=== PATIENT | male | born 1970 | race Caucasian/White ===

== ENCOUNTER 2016-12-08 13:17 | Emergency (ER) | payer MEDICARE ==
[~2016-12-08] VITALS: Ht 177.8 cm; Wt 108.9 kg
[2016-12-08] MEDS ORDERED: CLINDAMYCIN 900 MG in APPROPRIATE DILUENT 1 EA IV ONE (14:00)
[2016-12-08] MEDS ORDERED: ONDANSETRON 4MG/2ML VIAL (J2405) IV ONE (14:00)
[2016-12-08] MEDS ORDERED: KETOROLAC 30 MG/ML VIAL (J1885) IV ONE (14:00)
[2016-12-08] MEDS ORDERED: ADACEL/BOOSTRIX VACCINE (DIPHTH/PERTUSS/ACELL/TETANUS)0.5ML SYR (90715) IM ONE (14:15)
[2016-12-08 15:26] LABS: ANION GAP 7 MEQ/L (8-16); BLOOD UREA NITROGEN 13 MG/DL (7-18); CALCIUM LEVEL 8.8 MG/DL (8.5-10.1); CARBON DIOXIDE LEVEL 30 MEQ/L (21-32); CHLORIDE LEVEL 95 MEQ/L (98-107); CREATININE FOR GFR 1.23 MG/DL (0.70-1.30); GLOMERULAR FILTRATION RATE > 60.0 (>60); GLUCOSE, FASTING 125 MG/DL (70-105); POTASSIUM SERUM 3.6 MEQ/L (3.5-5.1); SODIUM LEVEL 132 MEQ/L (136-145)
[2016-12-08 15:38] LABS: BASO # 0.1 K/mm3 (0.0-0.2); BASO % 0.7 % (0.0-1.0); EOS # 0.1 K/mm3 (0.0-0.50); EOS % 0.8 % (0.0-3.0); LARGE UNSTAINED CELL # 0.2 K/mm3 (0.0-0.4); LYMPH # 1.3 K/mm3 (1.5-4.5); LYMPH % 6.5 % (24.0-44.0); MEAN CORPUSCULAR HEMOGLOBIN 30.7 pg (27.0-33.0); MEAN CORPUSCULAR HGB CONC 35.9 g/dl (32.0-36.5); MEAN CORPUSCULAR VOLUME 85.6 fl (80.0-96.0); MONO # 1.1 K/mm3 (0.0-0.8); MONO % 6.1 % (0.0-5.0); NEUTROPHILS # 14.9 K/mm3 (1.8-7.7); NEUTROPHILS % 84.9 % (36.0-66.0); PLATELET COUNT, AUTOMATED 214 k/mm3 (150-450); RED CELL DISTRIBUTION WIDTH 12.7 % (11.5-14.5); WHITE BLOOD COUNT 17.6 K/mm3 (4.0-10.0)
[2016-12-08] MEDS ORDERED: NS 1,000 ML IV ONE (15:45)
[2016-12-08] MEDS ORDERED: CLEO300C2 PO (16:09)
[2016-12-08 16:26] VITALS: BP 120/79
[2016-12-08 16:30] LABS: ERYTHROCYTE SEDIMENTATION RATE 39 mm/hr (0-15)
== END 2016-12-08 16:39 | disposition home or self-care (01) ==
LOC: M ED 14:10
DX: L03.113 Cellulitis of right upper limb (principal)

== ENCOUNTER 2016-12-10 16:03 | Inpatient (IN) | payer MEDICARE ==
[~2016-12-10] VITALS: Ht 177.8 cm; Wt 108.0 kg
[~2016-12-10 16:03] MED LIST: CLEO300C2 PO
[2016-12-10] MEDS ORDERED: IBUP600T26 PO (16:21)
[2016-12-10] MEDS ORDERED: NS 1,000 ML IV ONE (17:00)
[2016-12-10] MEDS ORDERED: ONDANSETRON 4MG/2ML VIAL (J2405) IV ONE (17:00)
[2016-12-10] MEDS ORDERED: MORPHINE 4 MG/ML 1ML SYRINGE IV ONE (17:00)
[2016-12-10 17:21] LABS: BASO % 0.2 % (0.0-1.0); EOS # 0.2 K/mm3 (0.0-0.50); EOS % 1.5 % (0.0-3.0); LARGE UNSTAINED CELL # 0.3 K/mm3 (0.0-0.4); LARGE UNSTAINED CELL % 2.3 % (0.0-4.0); LYMPH # 1.7 K/mm3 (1.5-4.5); LYMPH % 13.6 % (24.0-44.0); MEAN CORPUSCULAR HEMOGLOBIN 29.9 pg (27.0-33.0); MEAN CORPUSCULAR HGB CONC 34.3 g/dl (32.0-36.5); MEAN CORPUSCULAR VOLUME 87.1 fl (80.0-96.0); MONO # 0.8 K/mm3 (0.0-0.8); MONO % 6.2 % (0.0-5.0); NEUTROPHILS # 9.3 K/mm3 (1.8-7.7); NEUTROPHILS % 76.2 % (36.0-66.0); PLATELET COUNT, AUTOMATED 212 k/mm3 (150-450); RED CELL DISTRIBUTION WIDTH 12.3 % (11.5-14.5); WHITE BLOOD COUNT 12.1 K/mm3 (4.0-10.0)
[2016-12-10 17:37] LABS: ANION GAP 8 MEQ/L (8-16); BLOOD UREA NITROGEN 7 MG/DL (7-18); CALCIUM LEVEL 8.7 MG/DL (8.5-10.1); CARBON DIOXIDE LEVEL 29 MEQ/L (21-32); CHLORIDE LEVEL 99 MEQ/L (98-107); CREATININE FOR GFR 1.08 MG/DL (0.70-1.30); GLOMERULAR FILTRATION RATE > 60.0 (>60); GLUCOSE, FASTING 106 MG/DL (70-105); POTASSIUM SERUM 3.4 MEQ/L (3.5-5.1); SODIUM LEVEL 136 MEQ/L (136-145)
--- NOTE | 2016-12-10 17:40 | REPUSA ---
Clinical history: right upper extremity wounds. Findings: Real-time ultrasound imaging of the right axillary fossa was performed. Draining wound is n oted at this site. Mild redness is seen within the soft tissues. There is a hypoechoic mass measuring 5.8 x 1.4 x 2.7 cm, with possibly complex fluid noted. Normal heterogeneous fibroglandular tissue is noted. No evidence of calcifications are appreciated. No other gross abnormalities. Impression: Complex fluid collection at the site of concernwith diffuse surrounding edema. The findin gs could represent a complex abscess or cyst. Follow-up is suggested as clinically indicated.
[2016-12-10] MEDS ORDERED: PIPERACILLIN/TAZOBACTAM SOD 3.375 GM in D5W MINI-BAG PLUS 50 ML IV ONE (17:45)
[2016-12-10] MEDS: NS 1,000 ML IV SCH (18:44)
[2016-12-10] MEDS ORDERED: ONDANSETRON 4 MG TAB (S0181) PO PRN (18:45)
[2016-12-10] MEDS ORDERED: POTASSIUM CHLORIDE 10 MEQ SR TABLET PO ONE (18:45)
[2016-12-10] MEDS ORDERED: ACETAMINOPHEN TAB 650MG DOSE (2X325MG) PO PRN (18:45)
[2016-12-10] MEDS ORDERED: ONDANSETRON 4MG/2ML VIAL (J2405) IV PRN (18:45)
--- NOTE | 2016-12-10 19:55 | HPEPDOC ---
Medical History and Physical Date of Admission Dec 10, 2016 at 18:44 History and Physical HISTORY AND PHYSICAL Date of admission: 12/10/2016 PCP: Dr. Bone Chief complaint: Pain and erythema of right arm HPI: 46-year-old male with no past medical history presented to the emergency department secondary to erythema and pain in his right arm. He states that on Sunday, he was working under the car, when he scraped his arm on some of the rusting metal underneath. An area that he describes as a blood blister developed , and he said he poked it open with a safety pin that he had soaked in hydrogen peroxide. After that, his arm began to swell quite a bit and got very red. He ended up wrapping it in an Kyle bandage and went to bed. On morning, when he woke up, his arm had swelled up quite a bit with the Kyle bandage on, and when he took it off, he states that a bunch of yellow, foul-smelling pus flooded out of his arm. It did not seem to get any better, so on Sunday, he came to the emergency department. In the emergency department, he was given a tetanus shot, and was sent home on oral clindamycin. Since then, he states that some of the swelling and erythema, particularly that which was distal to his elbow, has improved and gone down. However, he states that he continues to have a lot of pain, swelling, and even increasing erythema of the area proximal to his elbow. He states that he continues to have foul-smelling yellow drainage from the area that is open in his antecubital fossa. He states that at home, he had been doing warm compresses and Epsom salts, and had been getting good drainage. He came back to the ER today for a wound check, and the PA was concerned that he had some areas of erythema that were increasing beyond the previously drawn borders. Past medical history: None Past surgical history: Back surgery Family history: COPD, diabetes mellitus Social history: The patient smokes several cigars daily. He denies any alcohol or drug use Allergies: No known drug allergies Review of systems: General: Positive for subjective fever and chills Eyes: Negative for vision changes and ocular drainage ENT: Negative for sore throat and nose bleed Cardiovascular: Negative for chest pain and palpitations Respiratory: Negative for cough and shortness of breath GI: Positive for nausea, negative for vomiting, diarrhea, constipation Musculoskeletal: Negative for neck and back pain Neuro: Positive for headache, dizziness. Negative for numbness and tingling Psych: Negative for depression and suicidal ideation Endocrine: Negative for polyuria : Negative for dysuria Heme: Negative for bleeding Home meds: See below Physical exam: Vital signs: Vital Sign - Last 24 Hours 12/10/16 12/10/16 12/10/16 12/10/16 16:04 17:18 17:35 17:36 Temp 98.3 Pulse 77 Resp 18 20 18 B/P (MAP) 137/83 (101) Pulse Ox 93 96 96 O2 Delivery Room Air Gen.: awake, alert, no acute distress Eyes: Extraocular movements intact, normal sclera ENT: Moist mucous membranes Cardiovascular: RRR, no murmurs rubs or gallops Lungs: clear to auscultation bilaterally, no rales, rhonchi, or wheeze Abdomen: Soft, NT/ND, normal BS Musculoskeletal: normal range of motion Extremities: RUE has intact radial pulse; erythema is confined by distal markings but it extends beyond the proximal markings; there is an area of erythema and induration just proximal to his antecubital fossa; he has good drainage from two areas in his antecubital fossa, especially when the indurated area is massage; the drainage is foul smelling and yellow Neuro: alert and oriented 3, normal speech, no focal deficits Psych: Normal mood with congruent affect Labs and radiology: See below White count has improved from 17.6 on Sunday to 12.1 today His CRP has improved from 15 on Sunday to 7.14 today BMP is unremarkable other than potassium of 3.4 Blood and wound cultures are pending Right upper extremity ultrasound shows a complex fluid collection consistent with abscess Assessment and plan: 46-year-old healthy male who is admitted with cellulitis and abscess of the right upper extremity after failing outpatient therapy. 1. Cellulitis and abscess of the right upper extremity: The patient is afebrile , and his white count and CRP are both trending down. However, his erythema has extended beyond the previous markings. The patient has been on oral clindamycin at home. We will do IV vancomycin and Zosyn, as well as continue some warm compresses and try to continue to express fluid from the abscess. At this time, the patient has good drainage and I do not believe it needs to be surgically incised. Blood and wound cultures are pending. However, if he does not continue to improve or his drainage stops, we may have to consider a surgical consultation. He already received a tetanus shot on Sunday. 2. Hypokalemia: Replace; we will check a magnesium DVT prophylaxis: Lovenox Dispo: admit as an inpatient to the service of Dr. Crowell CODE STATUS: Full code Vital Signs Vital Signs Date Time Temp Pulse Resp B/P (MAP) Pulse Ox O2 Delivery O2 Flow Rate FiO2 12/10/16 17:36 12/10/16 17:35 18 96 12/10/16 16:04 98.3 77 Room Air Laboratory Data Labs 24H Laboratory Tests 2 12/10/16 17:03: White Blood Count 12.1H, Red Blood Count 4.48, Hemoglobin 13.4L, Hematocrit 39.0L, Mean Corpuscular Volume 87.1, Mean Corpuscular Hemoglobin 29.9, Mean Corpuscular Hemoglobin Concent 34.3, Red Cell Distribution Width 12.3, Platelet Count 212, Neutrophils (%) (Auto) 76.2H, Lymphocytes (%) (Auto) 13.6L, Monocytes (%) (Auto) 6.2H, Eosinophils (%) (Auto) 1.5, Basophils (%) (Auto) 0.2 , Neutrophils # (Auto) 9.3H, Lymphocytes # (Auto) 1.7, Monocytes # (Auto) 0.8, Eosinophils # (Auto) 0.2, Basophils # (Auto) 0.0, Large Unclassified Cells % 2.3 , Large Unclassified Cells # 0.3, Anion Gap 8, Glomerular Filtration Rate > 60.0 , Blood Urea Nitrogen 7, Creatinine 1.08, Sodium Level 136, Potassium Level 3.4L , Chloride Level 99, Carbon Dioxide Level 29, Calcium Level 8.7, C-Reactive Protein, Quantitative 7.14H CBC/BMP Laboratory Tests 12/10/16 17:03 Red Blood Count 4.48, Mean Corpuscular Volume 87.1, Mean Corpuscular Hemoglobin 29.9, Mean Corpuscular Hemoglobin Concent 34.3, Red Cell Distribution Width 12.3 , Neutrophils (%) (Auto) 76.2 H, Lymphocytes (%) (Auto) 13.6 L, Monocytes (%) ( Auto) 6.2 H, Eosinophils (%) (Auto) 1.5, Basophils (%) (Auto) 0.2, Neutrophils # (Auto) 9.3 H, Lymphocytes # (Auto) 1.7, Monocytes # (Auto) 0.8, Eosinophils # (Auto) 0.2, Basophils # (Auto) 0.0, Calcium Level 8.7 Microbiology Microbiology 12/10/16 Blood Culture, Received Pending 12/10/16 Blood Culture, Received Pending 12/10/16 Gram Stain, Received Pending 12/10/16 Wound Culture, Received Pending Home Medications Scheduled Clindamycin Hcl (Cleocin) 300 Mg Cap, 300 MG PO Q6H Scheduled PRN Ibuprofen (Ibuprofen) 600 Mg Tab, 600 MG PO Q6H PRN for PAIN Allergies Coded Allergies: No Known Allergies (Unverified , 12/08/16) HERLINDA SNYDER Dec 10, 2016 19:55
[2016-12-10] MEDS ORDERED: VANCOMYCIN HCL 1,000 MG, VIAL MATE ADAPTER 1 EACH in D5W 250 ML IV ONE (20:00)
[2016-12-10] MEDS ORDERED: NICOTINE 14 MG/24 HR TRANSDERMAL TD ONE (20:00)
[2016-12-10] MEDS: PERCOCET 5MG/325MG TAB PO PRN (20:05)
[2016-12-10 21:36] VITALS: BP 110/61
[2016-12-11] MEDS: PIPERACILLIN/TAZOBACTAM SOD 3.375 GM in D5W MINI-BAG PLUS 50 ML IV SCH ×3 (00:34→13:46)
[2016-12-11] MEDS: PERCOCET 5MG/325MG TAB PO PRN ×6 (00:41→23:00)
[2016-12-11] MEDS: NS 1,000 ML IV SCH ×2 (00:43→12:39)
--- NOTE | 2016-12-11 03:13 | PHACANCOPD ---
PHARMACY VANCOMYCIN DOSING Pt Demographics Demographics Patient Age:46 , Weight:108.000 , Gender: male Adjusted Body Weight Date: 12/11/16, Adjusted Body Weight: [90.97] Kg Vancomycin Vancomycin indication: CELLULITIS(10-20) Vancomycin Target Ranges: 10-20 mcg/ml Vancomycin Load Y/N: No Load Dose Date Time Vancomycin Load Dose: Date: Time: Vancomycin Dose Date: 12/11/16. Current Vancomycin Dose: [1 gm iv q8h] Intermittent Dosing?: No Labs Labs Laboratory Tests 12/10/16 17:03 Red Blood Count 4.48, Mean Corpuscular Volume 87.1, Mean Corpuscular Hemoglobin 29.9, Mean Corpuscular Hemoglobin Concent 34.3, Red Cell Distribution Width 12.3 , Neutrophils (%) (Auto) 76.2 H, Lymphocytes (%) (Auto) 13.6 L, Monocytes (%) ( Auto) 6.2 H, Eosinophils (%) (Auto) 1.5, Basophils (%) (Auto) 0.2, Neutrophils # (Auto) 9.3 H, Lymphocytes # (Auto) 1.7, Monocytes # (Auto) 0.8, Eosinophils # (Auto) 0.2, Basophils # (Auto) 0.0, Calcium Level 8.7 Micro Microbiology 12/10/16 Blood Culture, Received Pending 12/10/16 Blood Culture, Received Pending 12/10/16 Gram Stain, Received Pending 12/10/16 Wound Culture, Received Pending Creatinine Clearance Date:12/11/16. Creatinine Clearance: [108.8]CALCULATED. Pending Labs TROUGH DUE Assessment and Plan Maintaining Current Dose?: Yes Reason for dose change: No Dose Change Pharmacist Note Pharmacist Note Date: 12/11/16. Pharmacist note:46 YOM 5'10" 117.93 KG ADMITTED W/CELLULITIS: TREATMENT REGIMEN INCLUDES PIP/TAZO 3.375 GM IV Q6H PLUS VANCOMYCIN PER PHARMACY CONSULT.;SCR=1.08: CRCL= 108.8 CALCULATED:wILL BEGIN vANCOMYCIN 1 GM IV Q8H BEGINNING :TROUGH TO BE DRAWN 12/11@1900: WILL CONTINUE TO FOLLOW LEVELS AND LABS ALEXAND[facility] Dec 11, 2016 03:13
[2016-12-11 04:00] VITALS: BP 118/69
[2016-12-11] MEDS: VANCOMYCIN HCL 1,000 MG, VIAL MATE ADAPTER 1 EACH in D5W 250 ML IV SCH ×3 (04:00→20:43)
[2016-12-11 06:58] LABS: BASO % 0.6 % (0.0-1.0); EOS # 0.2 K/mm3 (0.0-0.50); EOS % 2.2 % (0.0-3.0); LARGE UNSTAINED CELL # 0.2 K/mm3 (0.0-0.4); LARGE UNSTAINED CELL % 3.3 % (0.0-4.0); LYMPH # 2.2 K/mm3 (1.5-4.5); MEAN CORPUSCULAR HEMOGLOBIN 29.8 pg (27.0-33.0); MEAN CORPUSCULAR HGB CONC 34.3 g/dl (32.0-36.5); MEAN CORPUSCULAR VOLUME 86.8 fl (80.0-96.0); MONO # 0.5 K/mm3 (0.0-0.8); MONO % 7.4 % (0.0-5.0); NEUTROPHILS # 4.1 K/mm3 (1.8-7.7); NEUTROPHILS % 58.5 % (36.0-66.0); PLATELET COUNT, AUTOMATED 179 k/mm3 (150-450); RED CELL DISTRIBUTION WIDTH 12.4 % (11.5-14.5); WHITE BLOOD COUNT 6.9 K/mm3 (4.0-10.0)
[2016-12-11 07:15] LABS: ANION GAP 6 MEQ/L (8-16); BLOOD UREA NITROGEN 6 MG/DL (7-18); CALCIUM LEVEL 8.1 MG/DL (8.5-10.1); CARBON DIOXIDE LEVEL 28 MEQ/L (21-32); CHLORIDE LEVEL 110 MEQ/L (98-107); CREATININE FOR GFR 0.92 MG/DL (0.70-1.30); GLOMERULAR FILTRATION RATE > 60.0 (>60); GLUCOSE, FASTING 126 MG/DL (70-105); MAGNESIUM LEVEL 2.2 MG/DL (1.8-2.4); POTASSIUM SERUM 4.2 MEQ/L (3.5-5.1); SODIUM LEVEL 144 MEQ/L (136-145)
[2016-12-11 08:00] VITALS: BP 106/65
[2016-12-11] MEDS: ENOXAPARIN 40 MG/0.4 ML SYRINGE (J1650) SC SCH (09:09)
--- NOTE | 2016-12-11 15:08 | IPNPDOC ---
Subjective Date Seen The patient was seen on 12/11/16. Subjective Chief Complaint/HPI The patient is a 46-year-old male admitted with a reason for visit of Cellulitis Of Right Upper Extremity. General: Denies: Chills, Night Sweats Constitutional: Denies: Chills, Fever Eyes: Denies: Pain, Vision change ENT: Denies: Head Aches, Ear Pain Skin: Reports: Other (RUE Swelling, tenderness) Pulmonary: Denies: Dyspnea, Cough Cardiovascular: Denies: Chest Pain, Palpitations Gastrointestinal: Denies: Nausea, Vomiting Genitourinary: Denies: Dysuria, Frequency Hematologic: Denies: Bruising, Bleeding Excessively Objective Physical Examination General Exam: Positive: Alert, Cooperative, No Acute Distress ENT Exam: Positive: Atraumatic, Mucous membr. moist/pink Neck Exam: Negative: JVD Chest Exam: Positive: Clear to auscultation, Normal air movement Heart Exam: Positive: Rate Normal, Normal S1, Normal S2 Abdomen Exam: Positive: Soft, Negative: Tenderness Extremity Exam: Positive: Other (RUE notable for area of erythema/induration spreading from antecubital fossa area outwardly. The area of erythema has significantly improved and decreased compared to previous markings. Two small open drainage sites noted in the RUE antecubital fossae, draining clear/ yellowish upon deep palpation. No erythema or tenderness to palpation) Assessment /Plan Plan/VTE VTE Prophylaxis Ordered?: Yes Plan Cellulitis and abscess of the right upper extremity U/S of the RUE notable for complex fluid collection consistent with possible underlying abscess vs cyst--however the patient has drained a considerable amount of fluid upon expression of the drainage site and onto gauze dressing. His area of erythema on RUE has also improved significantly compared to previous markings Patient remains afebrile here. White blood cell count and CRP both continue to trend down. Continue Vancomycin for now Blood and wound cultures pending. We will continue to monitor the patient, if the patient spikes a fever, WBC or CRP levels worsen, we can consider a repeat U/S and surgical consultation for an I&D of the site DVT prophylaxis: Lovenox Dispo-Anticipate transition to PO Abx and D/C in the next 24-48 hrs pending blood/wound cultures, and continued clinical improvement. VS, I&O, 24H, Fishbone Vital Signs/I&O Vital Signs Date Time Temp Pulse Resp B/P (MAP) Pulse Ox O2 Delivery O2 Flow Rate FiO2 12/11/16 14:08 18 12/11/16 08:00 97.6 84 106/65 (79) 100 Room Air I&O- Last 24 Hours up to 6 AM 12/11/16 06:00 Intake Total 720 ml Balance 720 ml Laboratory Data 24H LABS Laboratory Tests 2 12/10/16 17:03: White Blood Count 12.1H, Red Blood Count 4.48, Hemoglobin 13.4L, Hematocrit 39.0L, Mean Corpuscular Volume 87.1, Mean Corpuscular Hemoglobin 29.9, Mean Corpuscular Hemoglobin Concent 34.3, Red Cell Distribution Width 12.3, Platelet Count 212, Neutrophils (%) (Auto) 76.2H, Lymphocytes (%) (Auto) 13.6L, Monocytes (%) (Auto) 6.2H, Eosinophils (%) (Auto) 1.5, Basophils (%) (Auto) 0.2 , Neutrophils # (Auto) 9.3H, Lymphocytes # (Auto) 1.7, Monocytes # (Auto) 0.8, Eosinophils # (Auto) 0.2, Basophils # (Auto) 0.0, Large Unclassified Cells % 2.3 , Large Unclassified Cells # 0.3, Anion Gap 8, Glomerular Filtration Rate > 60.0 , Blood Urea Nitrogen 7, Creatinine 1.08, Sodium Level 136, Potassium Level 3.4L , Chloride Level 99, Carbon Dioxide Level 29, Calcium Level 8.7, C-Reactive Protein, Quantitative 7.14H 12/11/16 06:30: White Blood Count 6.9, Red Blood Count 3.99L, Hemoglobin 11.9L, Hematocrit 34.7L , Mean Corpuscular Volume 86.8, Mean Corpuscular Hemoglobin 29.8, Mean Corpuscular Hemoglobin Concent 34.3, Red Cell Distribution Width 12.4, Platelet Count 179, Neutrophils (%) (Auto) 58.5, Lymphocytes (%) (Auto) 28.0, Monocytes ( %) (Auto) 7.4H, Eosinophils (%) (Auto) 2.2, Basophils (%) (Auto) 0.6, Neutrophils # (Auto) 4.1, Lymphocytes # (Auto) 2.2, Monocytes # (Auto) 0.5, Eosinophils # (Auto) 0.2, Basophils # (Auto) 0.0, Large Unclassified Cells % 3.3 , Large Unclassified Cells # 0.2, Anion Gap 6L, Glomerular Filtration Rate > 60.0, Blood Urea Nitrogen 6L, Creatinine 0.92, Sodium Level 144#, Potassium Level 4.2#, Chloride Level 110H, Carbon Dioxide Level 28, Calcium Level 8.1L, C- Reactive Protein, Quantitative 4.59H, Magnesium Level 2.2 CBC/BMP Laboratory Tests 12/10/16 17:03 Red Blood Count 4.48, Mean Corpuscular Volume 87.1, Mean Corpuscular Hemoglobin 29.9, Mean Corpuscular Hemoglobin Concent 34.3, Red Cell Distribution Width 12.3 , Neutrophils (%) (Auto) 76.2 H, Lymphocytes (%) (Auto) 13.6 L, Monocytes (%) ( Auto) 6.2 H, Eosinophils (%) (Auto) 1.5, Basophils (%) (Auto) 0.2, Neutrophils # (Auto) 9.3 H, Lymphocytes # (Auto) 1.7, Monocytes # (Auto) 0.8, Eosinophils # (Auto) 0.2, Basophils # (Auto) 0.0, Calcium Level 8.7 12/11/16 06:30 Red Blood Count 3.99 L, Mean Corpuscular Volume 86.8, Mean Corpuscular Hemoglobin 29.8, Mean Corpuscular Hemoglobin Concent 34.3, Red Cell Distribution Width 12.4, Neutrophils (%) (Auto) 58.5, Lymphocytes (%) (Auto) 28.0, Monocytes (%) (Auto) 7.4 H, Eosinophils (%) (Auto) 2.2, Basophils (%) ( Auto) 0.6, Neutrophils # (Auto) 4.1, Lymphocytes # (Auto) 2.2, Monocytes # (Auto ) 0.5, Eosinophils # (Auto) 0.2, Basophils # (Auto) 0.0, Calcium Level 8.1 L Microbiology Microbiology 12/10/16 Blood Culture, Received Pending 12/10/16 Blood Culture, Received Pending 12/10/16 Gram Stain - Final, Resulted 12/10/16 Wound Culture, Resulted Pending DENISE PERALTA MD Dec 11, 2016 15:08
[2016-12-11 16:00] VITALS: BP 131/83
--- NOTE | 2016-12-11 19:59 | PHACANCOPD ---
PHARMACY VANCOMYCIN DOSING Pt Demographics Demographics Patient Age:46 , Weight:108.000 , Gender: male Adjusted Body Weight Date: 12/11/16, Adjusted Body Weight: [90.97] Kg Events Past 24 Hours Events Past 24 Hours: YES: Pending Procedures, NO: Dialysis, Diuretic Therapy, Change in CrCl, Fever, Elevation in WBC, Pending Diagnostics, Other Vancomycin Vancomycin indication: CELLULITIS(10-20) Vancomycin Target Ranges: 10-20 mcg/ml Vancomycin Load Y/N: No Load Dose Date Time Vancomycin Load Dose: Date: Time: Vancomycin Dose Date: 12/11/16. Current Vancomycin Dose: [1 gm iv q8h] Intermittent Dosing?: No Labs Labs Item Value Date Time White Blood Count 12.1 K/mm3 H 12/10/16 1703 White Blood Count 6.9 K/mm3 12/11/16 0630 Vancomycin Level Trough 10.5 UG/ML 12/11/16 1912 Creatinine 1.08 MG/DL 12/10/16 1703 Creatinine 0.92 MG/DL 12/11/16 0630 Micro Microbiology 12/10/16 Blood Culture - Preliminary, Resulted No growth after 24 hours . All specim... 12/10/16 Blood Culture - Preliminary, Resulted No growth after 24 hours . All specim... 12/10/16 Gram Stain - Final, Resulted 12/10/16 Wound Culture, Resulted Pending Creatinine Clearance Date:12/11/16. Creatinine Clearance: [108.8]CALCULATED. Pending Labs TROUGH DUE 12/11@1900 Assessment and Plan Maintaining Current Dose?: Yes Reason for dose change: Other Pharmacist Note Pharmacist Note Date: 12/11/16. Pharmacist note: vanco trough was drawn on time ~1 hour before the 4th dose and came back at 10.5. I have rescheduled his dosing to allow a 4 hour load as SCr has slightly improved today. Anticipated switch to oral abx in the next 24-48 hours. Cultures have thus far been unremarkable. Zosyn has been discontinued. We will continue to monitor. Date: 12/11/16. Pharmacist note:46 YOM 5'10" 117.93 KG ADMITTED W/CELLULITIS: TREATMENT REGIMEN INCLUDES PIP/TAZO 3.375 GM IV Q6H PLUS VANCOMYCIN PER PHARMACY CONSULT.;SCR=1.08: CRCL= 108.8 CALCULATED:wILL BEGIN vANCOMYCIN 1 GM IV Q8H BEGINNING 12/10@1999:TROUGH TO BE DRAWN 12/11@1900: WILL CONTINUE TO FOLLOW LEVELS AND LABS Bry Betts Pharm.D. Dec 11, 2016 19:59
[2016-12-12] VITALS: BP 133/81
[2016-12-12] MEDS: VANCOMYCIN HCL 1,000 MG, VIAL MATE ADAPTER 1 EACH in D5W 250 ML IV SCH ×2 (00:45→08:36)
[2016-12-12] MEDS: NS 1,000 ML IV SCH ×2 (03:16→13:53)
[2016-12-12] MEDS: PERCOCET 5MG/325MG TAB PO PRN ×4 (03:16→13:35)
[2016-12-12 07:07] LABS: ANION GAP 6 MEQ/L (8-16); BASO % 0.6 % (0.0-1.0); BLOOD UREA NITROGEN 6 MG/DL (7-18); CARBON DIOXIDE LEVEL 27 MEQ/L (21-32); CHLORIDE LEVEL 110 MEQ/L (98-107); CREATININE FOR GFR 0.95 MG/DL (0.70-1.30); EOS # 0.2 K/mm3 (0.0-0.50); EOS % 2.6 % (0.0-3.0); GLOMERULAR FILTRATION RATE > 60.0 (>60); GLUCOSE, FASTING 93 MG/DL (70-105); LARGE UNSTAINED CELL # 0.3 K/mm3 (0.0-0.4); LARGE UNSTAINED CELL % 3.3 % (0.0-4.0); LYMPH # 2.1 K/mm3 (1.5-4.5); LYMPH % 25.3 % (24.0-44.0); MAGNESIUM LEVEL 2.3 MG/DL (1.8-2.4); MEAN CORPUSCULAR HEMOGLOBIN 29.6 pg (27.0-33.0); MEAN CORPUSCULAR HGB CONC 34.2 g/dl (32.0-36.5); MEAN CORPUSCULAR VOLUME 86.6 fl (80.0-96.0); MONO # 0.6 K/mm3 (0.0-0.8); MONO % 7.1 % (0.0-5.0); NEUTROPHILS # 5.1 K/mm3 (1.8-7.7); NEUTROPHILS % 61.1 % (36.0-66.0); PLATELET COUNT, AUTOMATED 232 k/mm3 (150-450); POTASSIUM SERUM 3.8 MEQ/L (3.5-5.1); RED CELL DISTRIBUTION WIDTH 12.2 % (11.5-14.5); SODIUM LEVEL 143 MEQ/L (136-145); WHITE BLOOD COUNT 8.4 K/mm3 (4.0-10.0)
[2016-12-12 08:00] VITALS: BP_SYST 132; BP_SYST 144; BP_DIAS 61; BP_DIAS 91
[2016-12-12] MEDS ORDERED: NICOTINE 14 MG/24 HR TRANSDERMAL TD PRN (08:15)
[2016-12-12] MEDS ORDERED: PERCOCET 5MG/325MG TAB PO PRN (08:15)
[2016-12-12] MEDS: ENOXAPARIN 40 MG/0.4 ML SYRINGE (J1650) SC SCH (08:37)
--- NOTE | 2016-12-12 11:29 | IPNPDOC ---
Subjective Date Seen The patient was seen on 12/12/16. Subjective Chief Complaint/HPI The patient is a 46-year-old male admitted with a reason for visit of Cellulitis Of Right Upper Extremity. Events since last encounter Patient reports still having pain and right extremity. Pain bothers him the most while sleeping. Has noticed continuous discharge. Was able to drain some out last night. Says the redness has decreased from Sunday. Still has to pain palpation of biceps area on the right. Constitutional: Denies: Chills, Fever Eyes: Denies: Pain, Vision change ENT: Denies: Head Aches, Ear Pain Skin: Reports: Other (Right arm red, swollen and painful around elbow. Decreased from previous couple of days. ) Pulmonary: Denies: Dyspnea, Cough Cardiovascular: Denies: Chest Pain, Palpitations Gastrointestinal: Denies: Nausea, Vomiting Genitourinary: Denies: Dysuria, Frequency Endocrine: Denies: Polydipsia, Polyphagia (262) Musculoskeletal: Denies: Back Pain Neurological: Denies: Weakness, Numbness Psych: Reports: Mood Normal, Denies: Anxiety, Depression Objective Physical Examination General Exam: Positive: Alert, Cooperative, No Acute Distress ENT Exam: Positive: Atraumatic, Mucous membr. moist/pink Neck Exam: Negative: JVD Chest Exam: Positive: Clear to auscultation, Normal air movement Heart Exam: Positive: Rate Normal, Normal S1, Normal S2 Abdomen Exam: Positive: Soft, Negative: Tenderness Extremity Exam: Positive: Normal pulses, Other (RUE notable for area of erythema/induration spreading from antecubital fossa area outwardly. The area of erythema has significantly improved and decreased compared to previous markings. Two small open drainage sites noted in the RUE antecubital fossae, draining yellowish upon deep palpation. Was able to drain a good amount on exam. Mild erythema and pain to palpation right forearm. ) Skin Exam: Positive: Nl turgor and temperature Neuro Exam: Positive: Normal Speech Assessment /Plan Plan/VTE VTE Prophylaxis Ordered?: Yes Plan Cellulitis and abscess of the right upper extremity U/S of the RUE notable for complex fluid collection consistent with possible underlying abscess vs cyst-- Was able to drain a good amount of yellow discharge on exam. His area of erythema on RUE has also improved significantly compared to previous markings. Still has significant pain to palpation of arm, especially when expressing discharge. Increase Percocet to 1-2 tabs q4hr for pain. Patient has been afebrile for 24 hours. White blood cell count and CRP both continue to trend down. WBC normal range. Continue Vancomycin for now. Possible discharge patient on oral antibiotics. Blood cultures negative at 24 hours times 2. Wound cultures pending. We will continue to monitor the patient at this time. Nicotine Addiction Patient is using a nicotine patch to quit smoking. Patient needed a new patch, prescribed patient one while he is in the hospital. Patient uses 14 mg patch/ day. Monitor as needed. VS, I&O, 24H, Fishbone Vital Signs/I&O Vital Signs Date Time Temp Pulse Resp B/P (MAP) Pulse Ox O2 Delivery O2 Flow Rate FiO2 12/12/16 08:38 20 12/12/16 08:00 97.2 58 144/91 (108) 97 Room Air I&O- Last 24 Hours up to 6 AM 12/12/16 06:00 Intake Total 4060 ml Output Total 2700 ml Balance 1360 ml Laboratory Data 24H LABS Laboratory Tests 2 12/11/16 19:12: Vancomycin Level Trough 10.5 12/12/16 06:20: White Blood Count 8.4, Red Blood Count 4.66, Hemoglobin 13.8L, Hematocrit 40.3L , Mean Corpuscular Volume 86.6, Mean Corpuscular Hemoglobin 29.6, Mean Corpuscular Hemoglobin Concent 34.2, Red Cell Distribution Width 12.2, Platelet Count 232, Neutrophils (%) (Auto) 61.1, Lymphocytes (%) (Auto) 25.3, Monocytes ( %) (Auto) 7.1H, Eosinophils (%) (Auto) 2.6, Basophils (%) (Auto) 0.6, Neutrophils # (Auto) 5.1, Lymphocytes # (Auto) 2.1, Monocytes # (Auto) 0.6, Eosinophils # (Auto) 0.2, Basophils # (Auto) 0.0, Large Unclassified Cells % 3.3 , Large Unclassified Cells # 0.3, Anion Gap 6L, Glomerular Filtration Rate > 60.0, Blood Urea Nitrogen 6L, Creatinine 0.95, Sodium Level 143, Potassium Level 3.8, Chloride Level 110H, Carbon Dioxide Level 27, Calcium Level 9.0, Magnesium Level 2.3, C-Reactive Protein, Quantitative 2.25H CBC/BMP Laboratory Tests 12/12/16 06:20 Red Blood Count 4.66, Mean Corpuscular Volume 86.6, Mean Corpuscular Hemoglobin 29.6, Mean Corpuscular Hemoglobin Concent 34.2, Red Cell Distribution Width 12.2 , Neutrophils (%) (Auto) 61.1, Lymphocytes (%) (Auto) 25.3, Monocytes (%) (Auto ) 7.1 H, Eosinophils (%) (Auto) 2.6, Basophils (%) (Auto) 0.6, Neutrophils # ( Auto) 5.1, Lymphocytes # (Auto) 2.1, Monocytes # (Auto) 0.6, Eosinophils # (Auto ) 0.2, Basophils # (Auto) 0.0, Calcium Level 9.0 Microbiology Microbiology 12/10/16 Blood Culture - Preliminary, Resulted No growth after 24 hours . All specim... 12/10/16 Blood Culture - Preliminary, Resulted No growth after 24 hours . All specim... 12/10/16 Gram Stain - Final, Resulted 12/10/16 Wound Culture, Resulted Pending GME ATTESTATION GME ATTESTATION My preceptor for this patient encounter was Dr. Dixon and he was physically present in the building during the encounter and was fully available. As needed , all aspects of the patient interview, examination, medical decision making process, and medical care plan development were reviewed and approved by the preceptor. Preceptor is aware and concurs with the plan as stated in the body of this note and will attest to such by his/her co-signature. PATRICK LUCIO DO Dec 12, 2016 10:58
[2016-12-12] MEDS ORDERED: BACT800T5 PO (15:47)
[2016-12-12] MEDS ORDERED: OXYC1TAB23 PO (15:47)
--- NOTE | 2016-12-12 18:56 | DS.PDOC ---
Discharge Summary General Date of Admission Dec 10, 2016 at 18:44 Date of Discharge 12/12/16 Attending Physician: VAL WATTERS MD Discharge Summary Primary care provider: Hiren Bone M.D. PROCEDURES PERFORMED DURING STAY: None. ADMITTING DIAGNOSES: 1. Cellulitis and abscess of right upper extremity. 2. Hypokalemia. DISCHARGE DIAGNOSES: 1. Cellulitis and abscess of right upper extremity. COMPLICATIONS/CHIEF COMPLAINT: Cellulitis Of Right Upper Extremity. HISTORY OF PRESENT ILLNESS: Patient is a 46-year-old male with past medical history of nicotine abuse and back surgery presents with pain and erythema of his right arm. Patient states this started approximately Sunday of last week. He was working under his car when he scraped his arm on something rusting. He doesn't describes that an area called blood blister developed and he said he poked it with a safety pin to drain it. After that his arm began to swell. He ended up putting Kyle bandage around it. morning he woke up needed swollen even more with the Kyle bandage on we took off he found some yellow foul- smelling pus. He then went to the ER and Sunday since it did not get any better. The ER he was given a tetanus shot and was sent home on oral clindamycin. Once going home the swelling and erythema worsened. Swelling spread from her right antecubital fossa upwards and downwards to his wrist. He continued also to have yellow foul-smelling drainage. He had been doing warm compresses at home. Came back to the ER on 12/10/2016. There have been previously drawn borders of erythema and erythema had spread beyond this from previous ER visit. An ultrasound of the upper extremity revealed complex fluid and edema and right upper extremity. Potassium was low on admission at 3.4. Potassium was given. Hospitalist service was then consult for admission. HOSPITAL COURSE: On the hospital patient had received a workup for his cellulitis and abscess. Blood cultures and drainage culture were taken. Patient received IV vancomycin while in the hospital. Was given every 8 hours. Patient also received 1 dose of IV Zosyn. For the hypokalemia labs were drawn in the morning. Repeat potassium revealed normal levels. DISCHARGE MEDICATIONS: Please see below. ALLERGIES: Please see below. PHYSICAL EXAMINATION ON DISCHARGE: VITAL SIGNS: Please see below. GENERAL: Alert and orientated. Comfortable and cooperative. HEENT: No signs of trauma. Extraocular muscles intact. Pupils equal reactive to light and accommodation. NECK: No thyroid enlargement. CARDIOVASCULAR EXAMINATION: Normal S1 and S2. No clicks rubs gallops or murmurs. RESPIRATORY EXAMINATION: Clear to auscultation bilaterally. ABDOMINAL EXAMINATION: Bowel sounds heard auscultation. No tenderness to palpation. EXTREMITIES: Patient's right upper extremity still erythematous warm. Some yellow drainage on exam. SKIN: No other new lesions or erythema. NEUROLOGICAL EXAMINATION: Moves all extremities equally. Speech intact. PSYCHIATRIC EXAMINATION: Normal affect. No depression or anxiety. LABORATORY DATA: Please see below. IMAGING: Extremity ultrasound on 12/10/2016 revealed Complex fluid collection at the site of concern with diffuse surrounding edema. The findings could represent a complex abscess or cyst. PROGNOSIS: Patient leaving AMA. ACTIVITY: As tolerated. DIET: As tolerated. DISCHARGE PLAN: Patient is leaving AMA. Plan was to keep patient in hospital until cultures have returned into received more IV vancomycin. Discussed with patient the risks of leaving before this was completed. Patient stated he understood the risks. DISPOSITION: 01 Home, Self-Care. DISCHARGE INSTRUCTIONS: 1. Take Bactrim double strength twice a day for 14 days. 2. Follow-up with primary care doctor Hiren Bone by Sunday. 3. If symptoms worsen please return to the ER. 4. Clean wound and applied a dressing twice a day with 4 x 4's provided with prescription and as needed. DISCHARGE CONDITION: AGAINST MEDICAL ADVICE TIME SPENT ON DISCHARGE: Greater than 30 minutes. Vital Signs/I&Os Vital Signs Date Time Temp Pulse Resp B/P (MAP) Pulse Ox O2 Delivery O2 Flow Rate FiO2 12/12/16 14:05 20 12/12/16 08:00 97.2 58 144/91 (108) 97 Room Air I&O- Last 24 Hours up to 6 AM 12/12/16 06:00 Intake Total 4060 ml Output Total 2700 ml Balance 1360 ml Laboratory Data Labs 24H Laboratory Tests 2 12/11/16 19:12: Vancomycin Level Trough 10.5 12/12/16 06:20: White Blood Count 8.4, Red Blood Count 4.66, Hemoglobin 13.8L, Hematocrit 40.3L , Mean Corpuscular Volume 86.6, Mean Corpuscular Hemoglobin 29.6, Mean Corpuscular Hemoglobin Concent 34.2, Red Cell Distribution Width 12.2, Platelet Count 232, Neutrophils (%) (Auto) 61.1, Lymphocytes (%) (Auto) 25.3, Monocytes ( %) (Auto) 7.1H, Eosinophils (%) (Auto) 2.6, Basophils (%) (Auto) 0.6, Neutrophils # (Auto) 5.1, Lymphocytes # (Auto) 2.1, Monocytes # (Auto) 0.6, Eosinophils # (Auto) 0.2, Basophils # (Auto) 0.0, Large Unclassified Cells % 3.3 , Large Unclassified Cells # 0.3, Anion Gap 6L, Glomerular Filtration Rate > 60.0, Blood Urea Nitrogen 6L, Creatinine 0.95, Sodium Level 143, Potassium Level 3.8, Chloride Level 110H, Carbon Dioxide Level 27, Calcium Level 9.0, Magnesium Level 2.3, C-Reactive Protein, Quantitative 2.25H CBC/BMP Laboratory Tests 12/12/16 06:20 Red Blood Count 4.66, Mean Corpuscular Volume 86.6, Mean Corpuscular Hemoglobin 29.6, Mean Corpuscular Hemoglobin Concent 34.2, Red Cell Distribution Width 12.2 , Neutrophils (%) (Auto) 61.1, Lymphocytes (%) (Auto) 25.3, Monocytes (%) (Auto ) 7.1 H, Eosinophils (%) (Auto) 2.6, Basophils (%) (Auto) 0.6, Neutrophils # ( Auto) 5.1, Lymphocytes # (Auto) 2.1, Monocytes # (Auto) 0.6, Eosinophils # (Auto ) 0.2, Basophils # (Auto) 0.0, Calcium Level 9.0 Microbiology Microbiology 12/10/16 Blood Culture - Preliminary, Resulted No Growth after 48 hours. All Specime... 12/10/16 Blood Culture - Preliminary, Resulted No Growth after 48 hours. All Specime... 12/10/16 Gram Stain - Final, Resulted 12/10/16 Wound Culture, Resulted Pending Discharge Medications Scheduled Trimethoprim/Sulfamethoxazole (Bactrim Ds 800-160 mg) 1 Tab Tab, 1 TAB PO BID Scheduled PRN Ibuprofen (Ibuprofen) 600 Mg Tab, 600 MG PO Q6H PRN for PAIN, (Reported) Oxycodone/Acetaminophen (Oxycodone/Acetaminophen 5-325 mg) 1 Tab Tab, 1 TAB PO Q6HP PRN for pain Allergies Coded Allergies: No Known Allergies (Unverified , 12/08/16) GME ATTESTATION GME ATTESTATION My preceptor for this patient encounter was Dr. Watters and he was physically present in the building during the encounter and was fully available. As needed , all aspects of the patient interview, examination, medical decision making process, and medical care plan development were reviewed and approved by the preceptor. Preceptor is aware and concurs with the plan as stated in the body of this note and will attest to such by his/her co-signature. PATRICK LUCIO DO Dec 12, 2016 18:42
== END 2016-12-12 16:15 | disposition home or self-care (01) | DRG 603 ==
LOC: M ED 16:42 → M ED INP 18:44 → M PED 21:05
PROVIDERS: ADMIT Hospitalist; ATTEND Internal Medicine
DX: L02.413 Cutaneous abscess of right upper limb (principal); L03.113 Cellulitis of right upper limb; F17.200 Nicotine dependence, unspecified, uncomplicated; E87.6 Hypokalemia; B95.7 Other staphylococcus as the cause of diseases classified elsewhere

== ENCOUNTER 2018-03-12 16:47 | Emergency (ER) | payer MEDICARE ==
[2018-03-12] MEDS: NORCO, ANEXSIA 5/325MG TABLET (HYDROcodone/ACETAMINOPHEN) PO (19:12)
[2018-03-12] MEDS: IBUPROFEN 400 MG TAB PO (19:13)
== END 2018-03-12 19:36 | disposition home or self-care (01) ==
LOC: M ED 16:47
DX: M25.442 Effusion, left hand (principal); L02.512 Cutaneous abscess of left hand; F19.10 Other psychoactive substance abuse, uncomplicated; F17.210 Nicotine dependence, cigarettes, uncomplicated
CPT/HCPCS: 93005